=== PATIENT | female | born 1990 | race Native Hawaiian/Other Pacific Islander ===

== ENCOUNTER 2024-10-29 17:09 | Inpatient (IN) | payer MEDICAID, SELFPAY ==
--- NOTE | 2024-10-29 18:11 | EKG_ITS ---
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
[2024-10-29 18:15] VITALS: BP 94/60; PULSE 137; RESP 20; TEMP 38.1; O2SAT 95
--- NOTE | 2024-10-29 18:42 | XR_ITS ---
Examination: PA lateral chest 2 views Technique: Upright AP lateral chest 2 views Exam date and time: October 29, 2024 1916 hrs. Comparison August 12, 2024 Indications: Chest pain coughing today. Findings: Prominent pneumonia in the right middle lobe and right base Normal heart size Intact osseous structures Impression: Prominent right middle lobe right base pneumonia
--- NOTE | 2024-10-29 18:43 | PD.EDRME ---
Rapid Medical Screening Exam RME Arrival date/time: 10/29/24 17:09 34-year-old female presents emergency department complaining of chest pain. Chief Complaint: Shortness of Breath/Dyspnea Time Seen by Provider: 10/29/24 18:20 Vital signs: Vital Signs Temperature 100.5 F H 10/29/24 18:15 Pulse Rate 137 H 10/29/24 18:15 Respiratory Rate 20 10/29/24 18:15 Blood Pressure 94/60 10/29/24 18:15 Pulse Oximetry (%) 95 10/29/24 18:15 Oxygen Delivery Method Room Air 10/29/24 18:15 Vital signs reviewed by provider: Yes
[2024-10-29 18:49] VITALS: TEMP 38.1
[2024-10-29] MEDS: ACETAMINOPHEN 500 MG TABLET 1000 MG PO (18:49)
[2024-10-29 19:18] LABS: Basophils # (Auto) 0.1 Thou/mm3 (0.0-0.2); Basophils % (Auto) 0 % (0-2.5); Eosinophils % (Auto) 0 % (0-10); Hematocrit 30.5 % (36.0-46.0); Immature Granulocytes % (Auto) 2 % (0-0); Immature Granulocytes Auto 0.61 Thou/mm3 (0.00-0.00); Lymphocytes # (Auto) 0.9 Thou/mm3 (1.0-4.8); Lymphocytes % (Auto) 3 % (10-50); Mean Corpuscular HGB Conc 29.5 g/dl (31.0-37.0); Mean Corpuscular Hemoglobin 17.3 pg (25.0-35.0); Mean Corpuscular Volume 59 fL (80-100); Monocytes # (Auto) 0.6 Thou/mm3 (0.0-0.8); Monocytes % (Auto) 2 % (0-12); Neutrophils # (Auto) 31.8 Thou/mm3 (1.8-7.7); Neutrophils % (Auto) 93 % (37-80); Nucleated Red Blood Cell % 0 /100 WBC (0); Platelet Count 519 Thou/mm3 (140-440); RDW Standard Deviation 38.5 fL (36.4-46.3); Red Blood Count 5.21 Miln/mm3 (4.00-5.20)
[2024-10-29 19:22] LABS: White Blood Count 34.1 Thou/mm3 (3.6-11.0)
[2024-10-29 19:36] LABS: B-Type Natriuretic Peptide 199 pg/mL (0-100)
[2024-10-29 19:58] LABS: Alanine Aminotransferase < 7 U/L (10-49); Albumin, Serum 4.4 gm/dL (3.5-5.0); Albumin/Globulin Ratio 1.4 (1.2-2.2); Alkaline Phosphatase 81 U/L (46-116); Anion Gap 8 (7-16); Aspartate Amino Transferase < 8 U/L (0-34); BUN/Creatinine Ratio 19 Ratio (12-20); Bilirubin,Total 0.8 mg/dL (0.3-1.2); Blood Urea Nitrogen 17 mg/dL (9-23); Calcium 9.1 mg/dL (8.3-10.6); Calcium (Corrected) 9.1 mg/dL (8.5-10.1); Carbon Dioxide 24.6 mMol/L (20.0-31.0); Chloride 101 mMol/L (98-107); Creatinine (Component) 0.9 mg/dL (0.6-1.3); Globulin 3.1 gm/dL (2.3-3.5); Glucose 135 mg/dL (74-106); Lipase 25 U/L (12-53); Magnesium 1.6 mg/dL (1.6-2.6); Osmolality,Calculated 271 (275-295); Potassium 3.8 mMol/L (3.4-5.1); Procalcitonin 13.47 ng/ml (0.0-0.49); Sodium 134 mMol/L (136-145); Total Protein 7.5 gm/dL (5.7-8.2); Troponin I < 0.020 ng/mL (0.0-0.045); eGFR > 60 See Note
[2024-10-29 21:21] LABS: INR 1.5 (0.9-1.3); Partial Thromboplastin Time 34.2 Seconds (22.0-36.0); Prothrombin Time 15.9 Seconds (9.0-12.2)
[2024-10-29 21:56] VITALS: BP 110/66; PULSE 104; RESP 22; TEMP 36.9; O2SAT 97
[2024-10-29 22:06] VITALS: BP 128/61; PULSE 85; RESP 24; O2SAT 98
[2024-10-29 22:12] LABS: Influenza A Ag Negative; Influenza B Ag Negative
--- NOTE | 2024-10-29 22:22 | PD.EDADULT ---
ED General RME/HPI General Chief complaint: Shortness of Breath/Dyspnea Stated complaint: SOB, chest pain X 2 days Time Seen by Provider: 10/29/24 18:20 Arrival date/time: 10/29/24 17:09 CC: Cough chest pain shortness of breath HPI ongoing for the past 3 to 4 days states that she has been feeling progressively worse throughout this day. Patient denies any nausea vomiting diarrhea is not sure when her last menstrual cycle was. No prior history of similar events. RME / HPI RME / HPI narrative: 10/29/24 17:09 34-year-old female presents emergency department complaining of chest pain. Related Data Home Medications ?Medication ?Instructions ?Recorded ?Confirmed No Known Home Medications 10/30/24 10/30/24 Allergies Allergy/AdvReac Type Severity Reaction Status Date / Time NKA* Allergy Uncoded 11/07/13 11:37 Review of Systems Review of Systems Narrative Review of Systems: GEN: No fever, no chills, no weight loss EYES: No discharge, no visual changes, no pain HEENT: No ear pain, no congestion, no sore throat PULM: + shortness of breath, + cough, no congestion CV: + chest pain, no dyspnea on exertion, no palpitations GI: No nausea, no vomiting, no diarrhea, no pain, no constipation : No frequency, no urgency, no dysuria MUSC/SKEL: No joint pain, no back pain SKIN: No rash PSYCH: No hallucinations, no depression HEME/LYMPH: No easy bleeding or bruising tendencies NEURO: No weakness, no headache Past Medical History Social History SMOKING STATUS: Current every day smoker ED Exam Narrative Physical exam: [General: In moderate comfort but not in any acute distress Head normocephalic HEENT: Within acceptable limits Neck is supple nontender Chest equal chest rise nontender to palpation Respiratory: Right base expiratory crackles. CV: Rate rhythm is regular, tachycardic, no murmurs rubs or clicks Abdomen is soft nontender no masses positive bowel sounds all 4 quadrants Back: No CVA tenderness no spinous process tenderness from cervical spine thoracic and lumbar spine Skin: Intact no petechiae rash induration ulceration or crepitus Extremities: Moving all extremity against resistance cap refill less than 2 seconds neurosensory intact Neuro: Awake alert oriented x3 Glascow coma 15 no focal deficits] Course Course Course Narrative: The patient's case, clinical presentation laboratory results and imaging discussed with Dr. Fountain resident for Dr. Buckley attending who is requesting a CTA of the chest prior to admission. At which time they will reevaluate the patient. Patient's case and care assumed by Dr. Ortiz. Quality Measures none Orders Category Date Time Status Bedside COVID-19 Antigen Test NOW Care 10/29/24 18:[address] Screening NOW Care 10/29/24 22:37 Active Continuous Pulse Oximetry STAT Care 10/29/24 18:42 Completed EKG (ED ONLY) *Do not use* NOW Care 10/29/24 18:[address] angio chest Stat Exams 10/29/24 22:37 Completed EKG (ED Only) Stat Exams 10/29/24 18:11 Ordered XR chest 2V Stat Exams 10/29/24 18:42 Completed B-Type Natriuretic Peptide Stat Lab 10/29/24 18:55 Completed Blood Culture (Lab) Stat Lab 10/29/24 18:55 Received CBC Stat Lab 10/29/24 18:55 Completed Comprehensive Metabolic Panel Stat Lab 10/29/24 18:55 Completed Influenza A & B Rapid Panel Stat Lab 10/29/24 21:31 Completed Lactate (Lactic Acid) Stat Lab 10/29/24 18:55 Completed Lipase Stat Lab 10/29/24 18:55 Completed Magnesium Stat Lab 10/29/24 18:55 Completed Partial Thromboplastin Time Stat Lab 10/29/24 20:26 Completed [address] Review Blood Smear Stat Lab 10/29/24 18:55 Completed Phosphorous Stat Lab 10/29/24 18:55 Completed Procalcitonin Stat Lab 10/29/24 18:55 Completed Prothrombin Time with INR Stat Lab 10/29/24 20:26 Completed Troponin I Stat Lab 10/29/24 18:55 Completed Urinalysis Stat Lab 10/30/24 02:41 Completed Urine Culture Stat Lab 10/30/24 02:41 Received Acetaminophen Tab [Tylenol ES Tab] Med 10/29/24 18:44 Discontinued 1,000 mg PO X1 ONE Sodium Chloride 0.9% 1000 ml [Ns] 1,000 ml Med 10/29/24 22:18 Discontinued IV 100 mls/hr Sodium Chloride 0.9% 1000 ml [Ns] 1,000 ml Med 10/29/24 22:18 Discontinued IV 999 mls/hr cefTRIAXone/D5w 1gm IV premix [Rocephin/D5w 1gm IV Med 10/29/24 22:18 Discontinued premix] 50 ml IV X1 Vital Signs Vital signs: Vital Signs Temperature 100.5 F H 10/29/24 18:15 Pulse Rate 137 H 10/29/24 18:15 Respiratory Rate 20 10/29/24 18:15 Blood Pressure 94/60 10/29/24 18:15 Pulse Oximetry (%) 95 10/29/24 18:15 Oxygen Delivery Method Room Air 10/29/24 18:15 [facility] Patient data External records reviewed:: [facility] Clinical information provided by:: patient Social determinants that could affect healthcare access:: none Patient has the following chronic illnesses:: None How is presenting disease/condition affected by chronic disease/condition?: uneffected by Evaluation data The following diagnostics were reviewed and interpreted by me:: lab results and radiology exam(s) Lab and/or radiology exams considered but not ordered:: CBC shows a 34,000 white count H&H of 9 and 30.5 respectively platelets elevated at 519. CMP shows sodium of 134 potassium 3.8 chloride of 101 CO2 of 24.6 BUN of 17 creatinine 0.9 glucose of 135 Lactic 2.0 BNP of 199 Pro-Ke of 13.47 Chest x-ray is inter by me read by radiology as a large right pneumonia. Interpretation Summary: Pneumonia Medications Medications considered but not ordered:: None Medication administrations:: Medication Administration History Acetaminophen (Acetaminophen 325 Mg Tablet) 650 mg PO Q6H PRN PRN Reason: Pain 1-3 or Fever >100.3 Stop: 11/29/24 02:41 Last Admin: 10/30/24 08:55 Dose: 650 mg Documented By: ARF Azithromycin (Azithromycin 250 Mg Tablet) 500 mg PO QDAY [facility] Stop: 11/03/24 08:59 Last Admin: 10/30/24 08:55 Dose: 500 mg Documented By: ARF Heparin Sodium (Porcine) (Heparin Sod Inj 5000 Unit/Ml Vial) 5,000 unit SC Q12HR [facility] Stop: 11/13/24 08:59 Last Admin: 10/30/24 08:55 Dose: 5,000 unit Documented By: ARF Co-signed By: GM Ceftriaxone Sodium/Dextrose (Rocephin/D5w 1gm Iv Premix) 50 mls @ 100 mls/hr IV HS [facility] Stop: 11/06/24 20:59 Ondansetron HCl (Ondansetron Inj 2 Mg/Ml Inj 2 Ml) 4 mg IV Q6H PRN; Protocol PRN Reason: NAUSEA OR VOMITING Stop: 11/29/24 02:41 Sennosides (Senna Tablet) 1 tab PO QDAY [facility]; Protocol Stop: 11/29/24 08:59 Last Admin: 10/30/24 08:55 Dose: 1 tab Documented By: ARF Discontinued Medications Acetaminophen (Acetaminophen 500 Mg Tablet) 1,000 mg PO X1 ONE Stop: 10/29/24 18:45 Last Admin: 10/29/24 18:49 Dose: 1,000 mg Documented By: ENRIQUETA Azithromycin (Azithromycin 250 Mg Tablet) 500 mg PO X1 ONE Stop: 10/30/24 02:46 Last Admin: 10/30/24 04:16 Dose: 500 mg Documented By: JOSEPH Azithromycin (Azithromycin 250 Mg Tablet) 250 mg PO QDAY [facility] Stop: 11/03/24 08:59 Sodium Chloride (Ns) 1,000 mls @ 999 mls/hr IV .Q1H1M ONE Stop: 10/29/24 23:18 Last Infusion: 10/30/24 00:59 Dose: Infused Documented By: Admin: 10/29/24 23:15 Dose: 999 mls/hr Documented By: JOSEPH Sodium Chloride (Ns) 1,000 mls @ 100 mls/hr IV .Q10H [facility] Stop: 10/30/24 08:17 Last Infusion: 10/30/24 10:39 Dose: Infused Documented By: Admin: 10/29/24 23:14 Dose: 100 mls/hr Documented By: JOSEPH Ceftriaxone Sodium/Dextrose (Rocephin/D5w 1gm Iv Premix) 50 mls @ 100 mls/hr IV X1 ONE Stop: 10/29/24 22:47 Last Infusion: 10/29/24 23:48 Dose: Infused Documented By: Admin: 10/29/24 23:16 Dose: 100 mls/hr Documented By: JOSEPH Sodium Phosphate 22.5 mmol/ (Sodium Chloride) 507.5 mls @ 82.778 mls/hr IV X1 ONE Stop: 10/30/24 09:44 Last Admin: 10/30/24 04:41 Dose: Not Given Documented By: KD Non-Admin Reason: Other, see note Sodium Chloride (Sodium Chloride Rt 10% 15 Ml Nebu) 5 ml INH X1 ONE Stop: 10/30/24 02:43 Last Admin: 10/30/24 03:00 Dose: Not Given Documented By: JOSY Non-Admin Reason: Patient Refused None Consultations Consultation(s) initiated? (list below): No Diagnosis Differential Diagnosis ED Complaint MDM: Pneumonia, PE methamphetamine abuse Most likely diagnosis given after review of the tests above:: Pneumonia methamphetamine abuse Admission Indicated Admission indicated?: indicated Explain why admission is indicated or not indicated:: Requires further medical management Admission Request Was there a request for admission?: No Disposition Plan Disposition Plan: Admit Medical Decision Making Differential Diagnosis Differential Diagnosis: Pneumonia, PE methamphetamine abuse Lab Data 10/30/24 04:49 10/30/24 04:49 Labs: Lab Results 10/29/24 10/29/24 10/29/24 Range/Units 18:55 20:26 20:47 WBC 34.1 H (3.6-11.0) Thou/mm3 RBC 5.21 H (4.00-5.20) Miln/mm3 Hgb 9.0 L (12.0-16.0) g/dL Hct 30.5 L (36.0-46.0) % MCV 59 L (80-100) fL MCH 17.3 L (25.0-35.0) pg MCHC 29.5 L (31.0-37.0) g/dl RDW Std Deviation 38.5 (36.4-46.3) fL Plt Count 519 H (140-440) Thou/mm3 Neut % (Auto) 93 H (37-80) % Lymph % (Auto) 3 L (10-50) % [place] % (Auto) 2 (0-12) % Eos % (Auto) 0 (0-10) % Baso % (Auto) 0 (0-2.5) % Neut # (Auto) 31.8 H (1.8-7.7) Thou/mm3 Lymph # (Auto) 0.9 L (1.0-4.8) Thou/mm3 [place] # (Auto) 0.6 (0.0-0.8) Thou/mm3 Eos # (Auto) 0.0 (0.0-0.5) Thou/mm3 Baso # (Auto) 0.1 (0.0-0.2) Thou/mm3 Immature Gran # (Auto) 0.61 H (0.00-0.00) Thou/mm3 Absolute Nucleated RBC 0.00 (0.00-0.00) Thou/mm3 Immature Gran % 2 H (0-0) % Nucleated RBC % 0 (0) /100 WBC Smear Path Review Sent to Pathologist PT 15.9 H (9.0-12.2) Seconds INR 1.5 H (0.9-1.3) APTT 34.2 (22.0-36.0) Seconds Sodium 134 L (136-145) mMol/L Potassium 3.8 (3.4-5.1) mMol/L Chloride 101 (98-107) mMol/L Carbon Dioxide 24.6 (20.0-31.0) mMol/L Anion Gap 8 (7-16) BUN 17 (9-23) mg/dL Creatinine 0.9 (0.6-1.3) mg/dL Estim Creat Clear Calc Not Performed. eGFR > 60 (60 - ) See Note BUN/Creatinine Ratio 19 (12-20) Ratio Glucose 135 H (74-106) mg/dL Calculated Osmolality 271 L (275-295) Lactic Acid 2.0 (0.4-2.0) mMol/L Calcium 9.1 (8.3-10.6) mg/dL Corrected Calcium 9.1 (8.5-10.1) mg/dL Phosphorus 2.0 L (2.4-5.1) mg/dL Magnesium 1.6 (1.6-2.6) mg/dL Total Bilirubin 0.8 (0.3-1.2) mg/dL AST < 8 (0-34) U/L ALT < 7 L (10-49) U/L Alkaline Phosphatase 81 (46-116) U/L Troponin I < 0.020 (0.0-0.045) ng/mL B-Natriuretic Peptide 199 H (0-100) pg/mL Total Protein 7.5 (5.7-8.2) gm/dL Albumin 4.4 (3.5-5.0) gm/dL Globulin 3.1 (2.3-3.5) gm/dL Albumin/Globulin Ratio 1.4 (1.2-2.2) Lipase 25 (12-53) U/L Procalcitonin 13.47 H (0.0-0.49) ng/ml Influenza A (Rapid) Cancelled Influenza B (Rapid) Cancelled 10/29/24 Range/Units 21:31 WBC (3.6-11.0) Thou/mm3 RBC (4.00-5.20) Miln/mm3 Hgb (12.0-16.0) g/dL Hct (36.0-46.0) % MCV (80-100) fL MCH (25.0-35.0) pg MCHC (31.0-37.0) g/dl RDW Std Deviation (36.4-46.3) fL Plt Count (140-440) Thou/mm3 Neut % (Auto) (37-80) % Lymph % (Auto) (10-50) % [place] % (Auto) (0-12) % Eos % (Auto) (0-10) % Baso % (Auto) (0-2.5) % Neut # (Auto) (1.8-7.7) Thou/mm3 Lymph # (Auto) (1.0-4.8) Thou/mm3 [place] # (Auto) (0.0-0.8) Thou/mm3 Eos # (Auto) (0.0-0.5) Thou/mm3 Baso # (Auto) (0.0-0.2) Thou/mm3 Immature Gran # (Auto) (0.00-0.00) Thou/mm3 Absolute Nucleated RBC (0.00-0.00) Thou/mm3 Immature Gran % (0-0) % Nucleated RBC % (0) /100 WBC Smear Path Review PT (9.0-12.2) Seconds INR (0.9-1.3) APTT (22.0-36.0) Seconds Sodium (136-145) mMol/L Potassium (3.4-5.1) mMol/L Chloride (98-107) mMol/L Carbon Dioxide (20.0-31.0) mMol/L Anion Gap (7-16) BUN (9-23) mg/dL Creatinine (0.6-1.3) mg/dL Estim Creat Clear Calc eGFR (60 - ) See Note BUN/Creatinine Ratio (12-20) Ratio Glucose (74-106) mg/dL Calculated Osmolality (275-295) Lactic Acid (0.4-2.0) mMol/L Calcium (8.3-10.6) mg/dL Corrected Calcium (8.5-10.1) mg/dL Phosphorus (2.4-5.1) mg/dL Magnesium (1.6-2.6) mg/dL Total Bilirubin (0.3-1.2) mg/dL AST (0-34) U/L ALT (10-49) U/L Alkaline Phosphatase (46-116) U/L Troponin I (0.0-0.045) ng/mL B-Natriuretic Peptide (0-100) pg/mL Total Protein (5.7-8.2) gm/dL Albumin (3.5-5.0) gm/dL Globulin (2.3-3.5) gm/dL Albumin/Globulin Ratio (1.2-2.2) Lipase (12-53) U/L Procalcitonin (0.0-0.49) ng/ml Influenza A (Rapid) Negative Influenza B (Rapid) Negative Discharge Plan Plan Patient Disposition: Other Care w/in Hosp ([facility]) Patient condition on transfer: Stable Problem List Clinical Impression: Pneumonia, Anemia PA/WARP KNITTER Supervising Physician PA/WARP KNITTER Supervising Physician: Hema Espinoza ENP
--- NOTE | 2024-10-29 22:37 | XR_ITS ---
Examination: CTA chest with intravenous contrast 2-D reconstructions 3-D reconstructions, vascular Date and time of exam: October 30, 2024 0015 hrs. Indications: Shortness of breath tachycardia coughing beginning 2 days ago CTDI: vol (mGy) 20.71 DLP: (mGycm) 446 Technique: Multiple axial sections of the thorax have been obtained. 3 mm slice thickness, from below the hemidiaphragms to above the apices of the lungs. Mediastinal and lung density settings have been obtained. 2-D sagittal and coronal reconstructions. 3-D angiographic renderings, 3-D volume renderings, 3D post processing, vascular maximum intensity projections obtained. Contrast administered is 100 cc Isovue-370 intravenous. Low dose protocols were performed. One or more of the following dose reduction techniques were used; automated exposure control, adjustment of the mA and/or KV according to patient size, use of iterative reconstruction technique. Findings: No thoracic aortic aneurysmal dilatation Pulmonary artery hypertension, main pulmonary artery segment 4 cm No pulmonary artery emboli Severe pneumonia involving right lower lobe and right middle lobe Fatty infiltration throughout the liver No gallstones identified No pancreatic mass The osseous structures are intact Impression: Pulmonary artery hypertension Negative for pulmonary artery emboli Severe pneumonia in the right middle lobe right lower lobe
[2024-10-29 23:00] VITALS: BP 134/63; PULSE 100; RESP 21; O2SAT 98
[2024-10-29] MEDS: SODIUM CHLORIDE 0.9% 1000 ML 1,000 ML 100 ML IV (23:14)
[2024-10-29] MEDS: SODIUM CHLORIDE 0.9% 1000 ML 1,000 ML 999 ML IV (23:15)
[2024-10-29] MEDS: cefTRIAXone/D5w 1gm IV premix 50 ML IV (23:16)
[2024-10-29 23:18] VITALS: TEMP 36.9
[2024-10-30] VITALS (17 sets, daily range): BP systolic 70–162; BP diastolic 53–95; PULSE 84–118; RESP 14–98; TEMP 36.6–39.1; O2SAT 95–100; BMI 33.5
--- NOTE | 2024-10-30 01:00 | PRELIM_ITS ---
CT angiogram of the chest with intravenous contrast (axial sections with sagittal and coronal reforma ts) October 30, 2024 0015 hours Clinical History: Shortness of breath, tachycardia and pneumonia.Vicky hnique:Helical axial sections with sagittal and coronal reformats of the chest were obtained with int ravenous contrast. Iterative reconstruction technique was employed to reduce patient radiation exposu re. 3D/MIP reconstructed images were also provided. Comparison: None.Findings:There is no filling def ect within the pulmonary artery divisions to suggest pulmonary thromboembolism. The mediastinum demon strates no evidence of mass or lymphadenopathy. The thoracic aorta is unremarkable. There is no peric ardial effusion. Consolidation in the right lower lobe.Smaller consolidation in the right middle lobe .No evidence of pleural effusion or pneumothorax.The osseous structures are unremarkable.The visualiz ed upper abdominal viscera are unremarkable.Impression:No CT evidence of pulmonary thromboembolism.Mu ltifocal pneumonia. Report Electronically Signed By: John Calzada 10/30/2024 12:58:16 AM [EST]
--- NOTE | 2024-10-30 03:26 | ESHP_ITS ---
<Statement entered by Andie Buckley MD - 10/30/24 22:19> I Andie Buckley MD reviewed the note and agree with the resident's assessment & plan with exceptions as below. I have personally reviewed labs, imaging, home meds/prior records, examined the patient, formulated and discussed management plan with the IM team. A 34-year-old F with no significant past medical history presented to ED with cough and atypical chest pain for past 3 days. On presentation noted to be febrile have significant leukocytosis, significantly elevated procalcitonin. CTPA ruled out PE however did reveal significant right lower lobe consolidation concerning for pneumonia. Will start on Rocephin and azithromycin, administer IV fluid resuscitation. Obtain respiratory cultures, sputum cultures, cocci serologies, mycoplasma antibody, strep pneumonia Legionella antigen. Documentation for date of: 10/30/24 HPI History of Present Illness History of present illness: The patient is a 34-year-old female with no significant past medical history who presented to the ED on 10/29/2024 with complaints of chest pain about 3 days duration. She was in her usual state of health until about 3 days ago when she started experiencing left-sided chest pain associated with productive cough with greenish-yellow sputum. Pain is said to radiateto the back and is exacerbated by coughing and deep inspiration. She also endorses subjective fevers and chills, but denies any difficulty breathing or shortness of breath. Additionally, she denies abdominal pain, nausea vomiting diarrhea or any urinary symptoms including dysuria. The patient has been otherwise healthy until onset of his episodes, [facility] but has had no appointments in the past year and uses no medications. She smokes 3 to 4 packs of cigarettes a day and has been for the last 16 years, however does not drink alcohol or use any other drugs. ED course: In the ED, patient had a fever of 100.5 and was tachycardic at 137 beats per minutes, tachypneic but normotensive and saturating 93% on room air Labs are significant for WBC of 34.1, hemoglobin 9, MCV 59 and platelet count of 519. PT and INR elevated. CMP-sodium 134 potassium 4.8 BUN and creatinine normal, glucose 135 phosphorus 2.0 with a BNP 199 and Pro-Ke 13.47, normal lactic acid. Chest x-ray showed prominent right middle lobe right base pneumonia, CT was negative for PE. ED patient received 1 L of NS and was started on maintenance fluid, as well as Tylenol and IV ceftriaxone. PMHx-none PSHx-none Social history-smokes 3 packs of cigarettes daily, does not drink alcohol use illicit drugs Home meds-none Review of Systems Review of Systems Narrative Review of Systems: GENERAL: Admits subjective fevers and chills HEENT: Denies headache or visual/hearing changes. Denies nasal discharge. NEURO: Denies unusual weakness or difficulty speaking. CARDIO: Admits chest pain, denies palpitations PULM: Admits productive cough but denies SOB or wheezing GI: Denies abdominal pain, N/V/C/D/reflux/gas, bright red blood per rectum or melena. Reports having BMs. URO: Denies burning/itching/pain/urinary changes. MSK/EXT/SKIN: Denies joint/skeletal/muscle pain, issues/changes in upper or lower extremities, itchiness, or superficial pain. PSYCH: Cooperative, pleasant mood & affect. Exam Vital Signs Temp Pulse Resp BP Pulse Ox O2 Del Method 98.4 F 95 20 162/95 H 98 Room Air 10/29/24 23:18 10/30/24 01:00 10/30/24 01:00 10/30/24 01:00 10/30/24 01:00 10/29/24 21:56 Narrative Exam GENERAL: AAOX3, warm to touch NEURO: FINANCING ANALYST grossly intact, moves extremities x4 HEENT: Moist mucosa. Eyes open, symmetrical, & clear CARDIO: No chest pain on palpation. Heart RRR, no obvious murmurs PULM: Coughing, coarse sounds in base of right lung. GI: Abdomen soft, nondistended, no pain on palpation. BSx4 URO/BEVEL FACE STONER AND POLISHER:: No further abnormalities noted. SKIN/MSK/EXT: No wounds/rashes/edema/amputations, no pain on palpation. Pedal pulses present B/L Results: Labs 10/30/24 04:49 10/30/24 04:49 Labs: Short CBC 10/29/24 Range/Units 18:55 WBC 34.1 H (3.6-11.0) Thou/mm3 Hgb 9.0 L (12.0-16.0) g/dL Hct 30.5 L (36.0-46.0) % Plt Count 519 H (140-440) Thou/mm3 BMP 10/29/24 18:55 Sodium 134 L Potassium 3.8 Chloride 101 Carbon Dioxide 24.6 BUN 17 Creatinine 0.9 Glucose 135 H Calcium 9.1 Cardiac Enzymes 10/29/24 Range/Units 18:55 Troponin I < 0.020 (0.0-0.045) ng/mL Liver Function 10/29/24 Range/Units 18:55 Total Bilirubin 0.8 (0.3-1.2) mg/dL AST < 8 (0-34) U/L ALT < 7 L (10-49) U/L Alkaline Phosphatase 81 (46-116) U/L Albumin 4.4 (3.5-5.0) gm/dL Quality Measures Quality Measures VTE prophylaxis Medications Home Medications and Allergies Home Medications ?Medication ?Instructions ?Recorded ?Confirmed ?Type No Known Home Medications 10/30/24 10/30/24 History Allergies Allergy/AdvReac Type Severity Reaction Status Date / Time NKA* Allergy Uncoded 11/07/13 11:37 Visit Medications Acetaminophen (Acetaminophen 325 Mg Tablet) 650 mg PO Q6H PRN PRN Reason: Pain 1-3 or Fever >100.3 Stop: 11/29/24 02:41 Azithromycin (Azithromycin 250 Mg Tablet) 250 mg PO QDAY [facility] Stop: 11/03/24 08:59 Sodium Chloride (Ns) 1,000 mls @ 100 mls/hr IV .Q10H BARRETT Stop: 10/30/24 08:17 Last Admin: 10/29/24 23:14 Dose: 100 mls/hr Ceftriaxone Sodium/Dextrose (Rocephin/D5w 1gm Iv Premix) 50 mls @ 100 mls/hr IV QDAY BARRETT Stop: 11/06/24 05:59 Ondansetron HCl (Ondansetron Inj 2 Mg/Ml Inj 2 Ml) 4 mg IV Q6H PRN; Protocol PRN Reason: NAUSEA OR VOMITING Stop: 11/29/24 02:41 Sennosides (Senna Tablet) 1 tab PO QDAY [facility]; Protocol Stop: 11/29/24 08:59 Discontinued Medications Acetaminophen (Acetaminophen 500 Mg Tablet) 1,000 mg PO X1 ONE Stop: 10/29/24 18:45 Last Admin: 12/22/24 18:49 Dose: 1,000 mg Azithromycin (Azithromycin 250 Mg Tablet) 500 mg PO X1 ONE Stop: 10/30/24 02:46 Sodium Chloride (Ns) 1,000 mls @ 999 mls/hr IV .Q1H1M ONE Stop: 10/29/24 23:18 Last Infusion: 10/30/24 00:59 Dose: Infused Ceftriaxone Sodium/Dextrose (Rocephin/D5w 1gm Iv Premix) 50 mls @ 100 mls/hr IV X1 ONE Stop: 10/29/24 22:47 Last Infusion: 10/29/24 23:48 Dose: Infused Sodium Chloride (Sodium Chloride Rt 10% 15 Ml Nebu) 5 ml INH X1 ONE Stop: 10/30/24 02:43 Assessment & Plan Assessment Summary: The patient is a 34-year-old female with no significant past medical history who presented to the ED on 10/29/2024 with complaints of chest pain about 3 days duration. Chest x-ray revealed pneumonia in the middle lobe of the right lung. #Sepsis #Community-acquired pneumonia #Pleurisy The patient presented with a 3-day history of chest pain, located on the left side associated with productive cough with greenish-yellow sputum. Pain is that radiates to the back and exacerbated by coughing and deep inspiration. Additionally, she endorses subjective fevers and chills, but denies any difficulty breathing or shortness of breath. In the ED, patient met 4/4 SIRS criteria with fever, tachycardia, tachypnea and WBC of 34.1 Chest x-ray showed prominent right middle lobe pneumonia and CT was negative for PE. In the ED, patient received 1 L of NS and is on maintenance fluids, also received Tylenol IV ceftriaxone Plan: -Admit to [facility] -Continue maintenance fluids -IV ceftriaxone -Azithromycin 500 mg x 1 and then 250 mg for 4 days -Blood and sputum cultures -Cocci serology -Continue to monitor CBC #Normocytic normochromic anemia Admitting labs showed a hemoglobin of 9 with MCV of 59 and low MCH. Plan: -Iron panel #Mild hyponatremia #Hypophosphatemia Admitting labs showed sodium level of 134 with osmolality of 271. Phosphorus-2.0 Plan: -Maintenance IV fluid NS -Replete phosphorus Health maintenance: Dispo: MedSurg Diet: Regular DVT: SC Heparin Garcia: None Lines: Peripheral PT: Not ordered Code: Full Case was discussed with attending physician, Dr Marcio Winston MD PGY-1
[2024-10-30 03:55] LABS: Collection Type, Urine Clean Catch
[2024-10-30 04:16] LABS: Bilirubin,Urine Negative (Negative); Blood,Urine Trace (Negative); Clarity,Urine Clear (Clear/Hazy); Color,Urine Lt-Yellow (Lt Yel-Yel); Glucose, Urine Negative (Negative); Ketones,Urine 1+ (Negative); Leukocyte Esterase,Urine Negative (Negative); Nitrite,Urine Positive (Negative); Protein,Urine Trace (Neg - Trace); RBC,Urine 3 /hpf (0-3); Specific Gravity,Urine 1.035 (1.001-1.035); Squamous Epithelial Cell,Urine 2 /hpf (0-5); Urobilinogen,Urine Negative mg/dL (0.0-1.0); WBC,Urine 2 /hpf (0-5)
[2024-10-30] MEDS: AZITHROMYCIN 250 MG TABLET 500 MG PO ×2 (04:16→08:55)
[2024-10-30 04:51] LABS: Amphetamine/Methamp Scrn,U Positive (Negative); Barbiturate Screen,Urine Negative (Negative); Benzodiazepines Screen,Urine Negative (Negative); Benzoylecgonine Screen, Ur Negative (Negative); Fentanyl Screen,Urine Negative (Negative); Opiate Screen,Urine Negative (Negative); THC Screen,Urine Negative (Negative)
[2024-10-30 05:56] LABS: Basophils # (Auto) 0.1 Thou/mm3 (0.0-0.2); Basophils % (Auto) 0 % (0-2.5); Eosinophils % (Auto) 0 % (0-10); Hematocrit 27.3 % (36.0-46.0); Immature Granulocytes % (Auto) 2 % (0-0); Lymphocytes # (Auto) 1.6 Thou/mm3 (1.0-4.8); Lymphocytes % (Auto) 5 % (10-50); Mean Corpuscular HGB Conc 28.9 g/dl (31.0-37.0); Mean Corpuscular Volume 59 fL (80-100); Monocytes # (Auto) 0.6 Thou/mm3 (0.0-0.8); Monocytes % (Auto) 2 % (0-12); Neutrophils # (Auto) 28.8 Thou/mm3 (1.8-7.7); Neutrophils % (Auto) 90 % (37-80); Nucleated Red Blood Cell % 0 /100 WBC (0); Platelet Count 452 Thou/mm3 (140-440); RDW Standard Deviation 38.7 fL (36.4-46.3); Red Blood Count 4.64 Miln/mm3 (4.00-5.20); White Blood Count 31.8 Thou/mm3 (3.6-11.0)
[2024-10-30 06:05] LABS: Hemoglobin 7.9 g/dL (12.0-16.0)
[2024-10-30 06:12] LABS: HCG,Qualitative Serum Negative
[2024-10-30 06:29] LABS: Path Review Blood Smear Sent to Pathologist
[2024-10-30 06:35] LABS: Ferritin 52 ng/mL (7.3-270.7); Iron < 5 mcg/dL (50-170); Percent Iron Saturation 1 % (20-55); Total Iron Binding Capacity 319 mcg/dL (250-425); Unsaturated Iron Binding 314 (225-295)
[2024-10-30 06:37] LABS: Glucose Estimated Average 114 mg/dL (80-131); Hemoglobin A1C 5.6 % Hgb (4.8-6.0)
[2024-10-30 06:49] LABS: Alanine Aminotransferase < 7 U/L (10-49); Albumin, Serum 3.8 gm/dL (3.5-5.0); Albumin/Globulin Ratio 1.3 (1.2-2.2); Alkaline Phosphatase 89 U/L (46-116); Anion Gap 9 (7-16); Aspartate Amino Transferase < 8 U/L (0-34); BUN/Creatinine Ratio 18 Ratio (12-20); Bilirubin,Total 0.5 mg/dL (0.3-1.2); Blood Urea Nitrogen 14 mg/dL (9-23); Calcium 8.9 mg/dL (8.3-10.6); Calcium (Corrected) 9.1 mg/dL (8.5-10.1); Carbon Dioxide 24.5 mMol/L (20.0-31.0); Cardiac Risk Estimate 2.3 RATIO (3.7-5.6); Chloride 104 mMol/L (98-107); Cholesterol 95 mg/dL (132-200); Creatinine (Component) 0.8 mg/dL (0.6-1.3); Globulin 2.9 gm/dL (2.3-3.5); Glucose 94 mg/dL (74-106); HDL Cholesterol 42 mg/dL (40-60); LDL Cholesterol,Calculated 37 mg/dL (0-130); Magnesium 1.9 mg/dL (1.6-2.6); Osmolality,Calculated 274 (275-295); Potassium 3.5 mMol/L (3.4-5.1); Sodium 137 mMol/L (136-145); Thyroid Stimulating Hormone 0.59 uIU/mL (0.55-4.78); Total Protein 6.7 gm/dL (5.7-8.2); Triglycerides 80 mg/dL (30-150); eGFR > 60 See Note
[2024-10-30] MEDS: HEPARIN SOD INJ 5000 UNIT/ML VIAL SC ×2 (08:55→21:53)
[2024-10-30] MEDS: ACETAMINOPHEN 325 MG TABLET 650 MG PO (08:55)
[2024-10-30] MEDS: SENNA TABLET 1 TAB PO (08:55)
[2024-10-30 10:00] LABS: Phosphorous 1.4 mg/dL (2.4-5.1)
--- NOTE | 2024-10-30 10:37 | ECHO_ITS ---
Transthoracic Echo Report Ht (in): Wt (lb): 180 Exam Location: Echo Lab Status: Inpatient Overlock Collar Setter: Libia Winters Indications: Procedure Performed: BP: 107 / 64 HR: 84 Technical Quality: Technically difficult study MEASUREMENTS (Male / Female) Normal Values 2D ECHO LV Diastolic Diameter PLAX 5.5 cm 4.2 - 5.9 / 3.9 - 5.3 cm LV Systolic Diameter PLAX 3.5 cm IVS Diastolic Thickness 0.7 cm 0.6 - 1.0 / 0.6 - 0.9 cm LVPW Diastolic Thickness 0.8 cm 0.6 - 1.0 / 0.6 - 0.9 cm LV Relative Wall Thickness 0.3 LVOT Diameter 2.3 cm M-MODE Aortic Root Diameter MM 2.3 cm LA Systolic Diameter MM 2.9 cm LA Ao Ratio MM 1.3 AV Cusp Separation MM 2.1 cm DOPPLER AV Peak Velocity 166.0 cm/s AV Peak Gradient 11.0 mmHg AV Mean Gradient 6.0 mmHg AV Velocity Time Integral 30.4 cm LVOT Peak Velocity 158.0 cm/s LVOT Peak Gradient 10.0 mmHg LVOT Velocity Time Integral 26.8 cm AV Area Cont Eq vti 3.7 cm? AV Area Cont Eq pk 4.0 cm? MV Area PHT 4.6 cm? Mitral E Point Velocity 100.0 cm/s Mitral A Point Velocity 80.5 cm/s Mitral E to A Ratio 1.2 LV E' Lateral Velocity 11.9 cm/s Mitral E to LV E' Lateral Ratio 8.4 LV E' Septal Velocity 7.5 cm/s Mitral E to LV E' Septal Ratio 13.3 PV Peak Velocity 148.0 cm/s PV Peak Gradient 8.8 mmHg FINDINGS Left Ventricle Normal left ventricular wall thickness, systolic function with no obvious regional wall motion abnormalities.Mildly dilated in size. Normal left ventricular diastolic filling pattern for age. Th e ejection fraction is visually estimated at 55-60%. Right Ventricle The right ventricle is mildly dilated in size with normal systolic function. Left Atrium The left atrium is normal by two-dimensional, color flow and Doppler imaging with no structural abnormalities, no thrombus formation present. Right Atrium The right atrium is normal by two-dimensional imaging, color flow and Doppler imaging with no struct ural abnormalities, no thrombus formation present. Atrial Septum The interatrial septum appears normal with no evidence of a shunt. Aorta The aorta is normal by two-dimensional, color flow and Doppler interrogation. Mitral Valve The mitral valve is normal by two-dimensional, color flow and Doppler interrogation. There is no sig nificant mitral valve regurgitation, stenosis or prolapse. Aortic Valve The aortic valve is trileaflet and normal by two-dimensional, color flow and Doppler interrogation. There is no significant aortic valve regurgitation. Tricuspid Valve The tricuspid valve is normal by two-dimensional, color flow and Doppler interrogation. There is a t racce tricuspid valve regurgitation. Pulmonic Valve The pulmonic valve is not well visualized. There is no significant pulmonic valve regurgitation. Vessels The pulmonary artery appears normal. The inferior vena cava pulmonary and hepatic veins appear bea l. Pericardium The pericardium is normal by two-dimensional imaging. There is no significant pericardial effusion. CONCLUSIONS Indication: h/o meth use Normal left ventricular wall thickness. Mildly dilated in size. Estimated EF 55-60%. RV is mildly dilated in size with normal systolic function. Trace TR. Francoise Coleman (Electronically Signed) Final Date: 31 October 2024 13:00
--- NOTE | 2024-10-30 13:22 | ESPR_ITS ---
<Statement entered by Nedra Tejeda MD - 10/30/24 16:18> Patient was examined bedside this morning, admitted for sepsis secondary to pneumonia. History of meth use will order echo. Continue the same treatment I discussed with and supervised my co-resident involved in the care of this patient. I agree with the assessment and plan as documented above. Nedra Tejeda,PGY-3 Disclaimer: Despite multiple revisions, due to the dictation software being used, the document below may not be free of grammatical errors including phonetic/typographic errors. However, this does not deter from our commitment to providing health care in the patient's best interest in mind. Documentation for date of: 10/30/24 Subjective Subjective Interval history: 10/30/24:Patient was seen and examined by the bedside. No acute overnight events. Patient reports feeling okay, continues to have weakness, cough. Reports feeling short of breath. Saturates well on room air, 99%. Continues to be on antibiotics. She received 2L of fluid overnight. Exam Vital Signs Temp Pulse Resp BP Pulse Ox O2 Del Method 97.8 F 91 19 110/53 L 100 Room Air 10/30/24 12:39 10/30/24 12:39 10/30/24 12:39 10/30/24 12:39 10/30/24 12:39 10/30/24 12:39 Narrative Exam Physical Exam General: Awake and in no acute distress. Conversational and non-toxic appearing. HEENT: Normocephalic, atraumatic, mucous membranes moist. Heart: Regular rate and rhythm, no murmurs. Lungs: Bilateral rhonchi. Abdomen: Soft, nondistended, nontender, positive bowel sounds. ?No guarding or rebound tenderness. Neurologic: Alert and oriented x3, no gross neurological deficit, and patient able to move all 4 extremities. Extremities: No edema. Skin: No rash or ecchymoses. Objective Labs 10/31/24 05:12 10/31/24 05:12 Labs: Laboratory Results - last 24 hr 10/29/24 10/29/24 10/29/24 18:55 20:26 20:47 WBC 34.1 H RBC 5.21 H Hgb 9.0 L Hct 30.5 L MCV 59 L MCH 17.3 L MCHC 29.5 L RDW Std Deviation 38.5 Plt Count 519 H Neut % (Auto) 93 H Lymph % (Auto) 3 L [place] % (Auto) 2 Eos % (Auto) 0 Baso % (Auto) 0 Neut # (Auto) 31.8 H Lymph # (Auto) 0.9 L [place] # (Auto) 0.6 Eos # (Auto) 0.0 Baso # (Auto) 0.1 Immature Gran # (Auto) 0.61 H Absolute Nucleated RBC 0.00 Immature Gran % 2 H Nucleated RBC % 0 Smear Path Review Sent to Pathologist PT 15.9 H INR 1.5 H APTT 34.2 Sodium 134 L Potassium 3.8 Chloride 101 Carbon Dioxide 24.6 Anion Gap 8 BUN 17 Creatinine 0.9 Estim Creat Clear Calc Not Performed. eGFR > 60 BUN/Creatinine Ratio [address] Glu mg/dL Hemoglobin A1c Calculated Osmolality 271 L Lactic Acid 2.0 Calcium 9.1 Corrected Calcium 9.1 Phosphorus 2.0 L Magnesium 1.6 Iron TIBC Iron Saturation Unsat Iron Binding Ferritin Total Bilirubin 0.8 AST < 8 ALT < 7 L Alkaline Phosphatase 81 Troponin I < 0.020 B-Natriuretic Peptide 199 H Total Protein 7.5 Albumin 4.4 Globulin 3.1 Albumin/Globulin Ratio 1.4 Triglycerides Cholesterol LDL Cholesterol, Calc HDL Cholesterol Cholesterol/HDL Ratio Lipase 25 Procalcitonin 13.47 H TSH HCG, Qual Ur Collection Type Urine Color Urine Clarity Urine pH Ur Specific [place] Urine Protein Urine Glucose (UA) Urine Ketones Urine Blood Urine Nitrite Urine Bilirubin Urine Urobilinogen (Auto) Ur Leukocyte Esterase Urine RBC Urine WBC Ur Squamous Epith Cells Urine Bacteria Urine Opiates Screen Urine Fentanyl Screen Ur Barbiturates Screen U Amphetamin/Meth Scrn U Benzodiazepines Scrn U Cocaine Metab Screen U Marijuana (THC) Screen Influenza A (Rapid) Cancelled Influenza B (Rapid) Cancelled 10/29/24 10/30/24 10/30/24 21:31 02:41 04:49 WBC 31.8 H RBC 4.64 Hgb 7.9 L Hct 27.3 L MCV 59 L MCH 17.0 L MCHC 28.9 L RDW Std Deviation 38.7 Plt Count 452 H D Neut % (Auto) 90 H Lymph % (Auto) 5 L [place] % (Auto) 2 Eos % (Auto) 0 Baso % (Auto) 0 Neut # (Auto) 28.8 H Lymph # (Auto) 1.6 [place] # (Auto) 0.6 Eos # (Auto) 0.0 Baso # (Auto) 0.1 Immature Gran # (Auto) 0.70 H Absolute Nucleated RBC 0.00 Immature Gran % 2 H Nucleated RBC % 0 Smear Path Review PT INR APTT Sodium 137 Potassium 3.5 Chloride 104 Carbon Dioxide 24.5 Anion Gap 9 BUN 14 Creatinine 0.8 Estim Creat Clear Calc Not Performed. eGFR > 60 BUN/Creatinine Ratio [address] Glu mg/dL 114 Hemoglobin A1c 5.6 Calculated Osmolality 274 L Lactic Acid Calcium 8.9 Corrected Calcium 9.1 Phosphorus 1.4 L Magnesium 1.9 Iron < 5 L TIBC 319 Iron Saturation 1 L Unsat Iron Binding 314 H Ferritin 52 Total Bilirubin 0.5 AST < 8 ALT < 7 L Alkaline Phosphatase 89 Troponin I B-Natriuretic Peptide Total Protein 6.7 Albumin 3.8 D Globulin 2.9 Albumin/Globulin Ratio 1.3 Triglycerides 80 Cholesterol 95 L LDL Cholesterol, Calc 37 HDL Cholesterol 42 Cholesterol/HDL Ratio 2.3 L Lipase Procalcitonin TSH 0.59 HCG, Qual Negative Ur Collection Type Clean Catch Urine Color Lt-Yellow Urine Clarity Clear Urine pH 6.0 Ur Specific [place] 1.035 Urine Protein Trace Urine Glucose (UA) Negative Urine Ketones 1+ A Urine Blood Trace Urine Nitrite Positive Urine Bilirubin Negative Urine Urobilinogen (Auto) Negative Ur Leukocyte Esterase Negative Urine RBC 3 Urine WBC 2 Ur Squamous Epith Cells 2 Urine Bacteria None Urine Opiates Screen Negative Urine Fentanyl Screen Negative Ur Barbiturates Screen Negative U Amphetamin/Meth Scrn Positive A U Benzodiazepines Scrn Negative U Cocaine Metab Screen Negative U Marijuana (THC) Screen Negative Influenza A (Rapid) Negative Influenza B (Rapid) Negative Quality Measures Quality Measures none Assessment & Plan Assessment Current Active Medications: Generic Name Dose Route Start Last Admin Trade Name Freq PRN Reason Stop Dose Admin Acetaminophen 650 mg 10/30/24 02:42 10/30/24 08:55 Acetaminophen 325 Mg Tablet PO 11/29/24 02:41 650 mg Q6H PRN Administration Pain 1-3 or Fever >100.3 Azithromycin 500 mg 10/30/24 09:00 10/30/24 08:55 Azithromycin 250 Mg Tablet PO 11/03/24 08:59 500 mg QDAY BARRETT Administration Heparin Sodium (Porcine) 5,000 unit 10/30/24 09:00 10/30/24 08:55 Heparin Sod Inj 5000 Unit/Ml Vial SC 11/13/24 08:59 5,000 unit Q12HR BARRETT Administration Ceftriaxone Sodium/Dextrose 50 mls @ 100 mls/hr 10/30/24 21:00 Rocephin/D5w 1gm Iv Premix IV 11/06/24 20:59 HS BARRETT Ondansetron HCl 4 mg 10/30/24 02:42 Ondansetron Inj 2 Mg/Ml Inj 2 Ml IV 11/29/24 02:41 Q6H PRN NAUSEA OR VOMITING Protocol Sennosides 1 tab 10/30/24 09:00 10/30/24 08:55 Senna Tablet PO 11/29/24 08:59 1 tab QDAY BARRETT Administration Protocol Plan The patient is a 34-year-old female with no significant past medical history who presented to the ED on 10/29/2024 with complaints of chest pain about 3 days duration. Chest x-ray revealed pneumonia in the middle lobe of the right lung. #Sepsis 2/2 to CAP, resolving #Community-acquired pneumonia #Pleurisy, imroving The patient presented with a 3-day history of chest pain, located on the left side associated with productive cough with greenish-yellow sputum. Pain is that radiates to the back and exacerbated by coughing and deep inspiration. Additionally, she endorses subjective fevers and chills, but denies any difficulty breathing or shortness of breath. In the ED, patient met 4/4 SIRS criteria with fever, tachycardia, tachypnea and WBC of 34.1 Chest x-ray showed prominent right middle lobe pneumonia and CT was negative for PE. In the ED, patient received 1 L of NS and is on maintenance fluids, also received Tylenol IV ceftriaxone. Patient has received additional 1L of maintenance fluids. Plan: -IV ceftriaxone 10/29-current -Azithromycin 500 mg 10/29-current -Blood and sputum cultures sent 10/29/24, pending -Cocci serology pending -Continue to monitor CBC #CHF suspected #Suspected pulmonary hypertension #History of meth use Patient reports shortness of breath, chest pain. Utox is positive for methamphetamine. Chest CTA was negative for PE, positive for pulmonary hypertension. Plan: - Echo ordered #Normocytic normochromic anemia #Chronic iron deficiency anemia Admitting labs showed a hemoglobin of 9 with MCV of 59 and low MCH. Iron panel showed low iron, high TIBC, normal ferriting. Plan: - patient would require outpatient follow-up for possible source of bleeding - Iron supplements on discharge #Mild hyponatremia #Hypophosphatemia Admitting labs showed sodium level of 134 with osmolality of 271. Phosphorus-2.0 Plan: - monitor daily CMP Health maintenance: Dispo: MedSurg Diet: Regular DVT: SC Heparin Garcia: None Lines: Peripheral Code: Full code Plan of care discussed with attending Dr. Ricks and PGY-[address] Tejeda. Joanna Heart MD, PGY 1. Attending Provider Attestation/Addendum I have discussed and was present for the essential components of the history, physical examination, diagnosis, and treatment plan with the resident. I agree with the patient's care as documented by the resident and amended herein by me. Juan Carlos Ricks DO. Although this document has been carefully reviewed, there may still be some phonetic and other typographical errors. These errors are purely grammatical due to imperfections in the software program and should not be construed in any way to compromise the substance of the patient's medical care during this visit.
[2024-10-30 14:42] LABS: Cocci Serology, IgM Positive (Negative)
[2024-10-30 14:43] LABS: Cocid Sro, CF/ID (UCD) NO CHG* See Sep Rpt
--- NOTE | 2024-10-30 19:04 | PC.CC ---
Pt Nat Arredondo is a 34 yr old female, admitted to hospitalist services for sepsis, CAP, Pleurisy. UPPER CUTTER MACHINE CC met with pt at bedside to complete initial assessment. At time of encounter pt is noted to be alert and oriented to person, place and situation. Pt expressed understanding admission orders. Pt able to confirm all demographic information. Pt is from home [id number] Pt reports living in her home alone. Pt identifies her mother Sade Puckett [phone]. Pt reports being independent with ambulation and with completion of her ADLs. Pt reports she is not diabetic and is not on dialysis. Pt does not require supplemental O2. Pt is followed by [facility] for primary care. At time of D/c plan is for pt to return home. Per pt, family will provide transport.
[2024-10-30] MEDS: cefTRIAXone/D5w 1gm IV premix 50 ML IV (21:53)
[2024-10-31] VITALS (8 sets, daily range): BP systolic 130–140; BP diastolic 69–77; PULSE 74–97; RESP 15–99; TEMP 36.3–36.7; O2SAT 97–99
[2024-10-31 06:01] LABS: Basophils # (Auto) 0.1 Thou/mm3 (0.0-0.2); Basophils % (Auto) 0 % (0-2.5); Eosinophils # (Auto) 0.2 Thou/mm3 (0.0-0.5); Eosinophils % (Auto) 1 % (0-10); Hematocrit 25.6 % (36.0-46.0); Immature Granulocytes % (Auto) 1 % (0-0); Immature Granulocytes Auto 0.07 Thou/mm3 (0.00-0.00); Lymphocytes # (Auto) 2.1 Thou/mm3 (1.0-4.8); Lymphocytes % (Auto) 14 % (10-50); Mean Corpuscular HGB Conc 28.5 g/dl (31.0-37.0); Mean Corpuscular Hemoglobin 16.8 pg (25.0-35.0); Mean Corpuscular Volume 59 fL (80-100); Monocytes # (Auto) 0.5 Thou/mm3 (0.0-0.8); Monocytes % (Auto) 4 % (0-12); Neutrophils # (Auto) 12.3 Thou/mm3 (1.8-7.7); Neutrophils % (Auto) 81 % (37-80); Nucleated Red Blood Cell % 0 /100 WBC (0); Platelet Count 467 Thou/mm3 (140-440); RDW Standard Deviation 38.9 fL (36.4-46.3); Red Blood Count 4.35 Miln/mm3 (4.00-5.20); White Blood Count 15.2 Thou/mm3 (3.6-11.0)
[2024-10-31 06:10] LABS: Hemoglobin 7.3 g/dL (12.0-16.0)
[2024-10-31 06:51] LABS: Alanine Aminotransferase 7 U/L (10-49); Albumin, Serum 3.6 gm/dL (3.5-5.0); Albumin/Globulin Ratio 1.2 (1.2-2.2); Alkaline Phosphatase 78 U/L (46-116); Anion Gap 8 (7-16); Aspartate Amino Transferase < 8 U/L (0-34); BUN/Creatinine Ratio 20 Ratio (12-20); Bilirubin,Total 0.2 mg/dL (0.3-1.2); Blood Urea Nitrogen 10 mg/dL (9-23); Calcium (Corrected) 9.3 mg/dL (8.5-10.1); Carbon Dioxide 25.9 mMol/L (20.0-31.0); Chloride 103 mMol/L (98-107); Creatinine (Component) 0.5 mg/dL (0.6-1.3); Estimated Creatinine Clearance 167.5 mL/min (>60); Globulin 2.9 gm/dL (2.3-3.5); Glucose 103 mg/dL (74-106); Magnesium 1.6 mg/dL (1.6-2.6); Osmolality,Calculated 272 (275-295); Phosphorous 2.8 mg/dL (2.4-5.1); Potassium 3.5 mMol/L (3.4-5.1); Sodium 137 mMol/L (136-145); Total Protein 6.5 gm/dL (5.7-8.2); eGFR > 60 See Note
--- NOTE | 2024-10-31 08:34 | EKG_ITS ---
[facility] Test Date: 2024-10-31 Pat Name: KE DIALLO [facility] Gender: Female [address] Administrator: HARDEEP : 1990 Requested By: Joanna Heart Order Number: [id number] Reading MD: Joanna Heart Measurements Intervals [place] Rate: 81 P: 11 GA: 126 QRS: 3 QRSD: 102 T: 7 QT: 409 QTc: 478 Interpretive Statements SINUS RHYTHM No previous ECG available for comparison /store/S0/[id number]
--- NOTE | 2024-10-31 08:46 | ESPR_ITS ---
<Statement entered by Nedra Tejeda MD - 10/31/24 14:57> Patient was examined bedside this morning she is complaining of mild shortness of breath, cocci came back positive started her on fluconazole. Pending blood cultures and echo. I discussed with and supervised my co-resident involved in the care of this patient. I agree with the assessment and plan as documented above. Nedra Tejeda,PGY-3 Disclaimer: Despite multiple revisions, due to the dictation software being used, the document below may not be free of grammatical errors including phonetic/typographic errors. However, this does not deter from our commitment to providing health care in the patient's best interest in mind. Documentation for date of: 10/31/24 Subjective Subjective Interval history: Patient was seen and examined by the bedside. No acute overnight events. Patient reports weakness and shortness of breath improved. Saturates well on room air. Reports last methamphetamine use was week ago. Denies blood in the stool, reports her menstruations last 3 to 4 days, sometimes she uses 3-4 pads a day, reports profuse bleeding. Denies bleeding in between periods. Denies recent surgeries, childbirth. Reports eating meat every day. Had a discussion regarding the methamphetamine use, patient was recommended to stay away from using methamphetamine and was explained negative side effects of methamphetamine use. Cocci IgM was positive, we will start her on fluconazole. EKG showed sinus rhythm. Exam Vital Signs Temp Pulse Resp BP Pulse Ox O2 Del Method 97.3 F 80 18 132/71 H 99 Room Air 10/31/24 08:00 10/31/24 08:00 10/31/24 08:00 10/31/24 08:00 10/31/24 08:00 10/31/24 08:00 Narrative Exam Physical Exam General: Awake and in no acute distress. Conversational and non-toxic appearing. HEENT: Normocephalic, atraumatic, mucous membranes moist. Heart: Regular rate and rhythm, no murmurs. Lungs: Bilateral rhonchi. Abdomen: Soft, nondistended, nontender, positive bowel sounds. ?No guarding or rebound tenderness. Neurologic: Alert and oriented x3, no gross neurological deficit, and patient able to move all 4 extremities. Extremities: No edema. Skin: No rash or ecchymoses. Objective Labs 11/01/24 05:00 11/01/24 04:55 Labs: Laboratory Results - last 24 hr 10/30/24 10/31/24 04:49 05:12 WBC 15.2 H D RBC 4.35 Hgb 7.3 L Hct 25.6 L MCV 59 L MCH 16.8 L MCHC 28.5 L RDW Std Deviation 38.9 Plt Count 467 H Neut % (Auto) 81 H Lymph % (Auto) 14 Boyd % (Auto) 4 Eos % (Auto) 1 Baso % (Auto) 0 Neut # (Auto) 12.3 H Lymph # (Auto) 2.1 Boyd # (Auto) 0.5 Eos # (Auto) 0.2 Baso # (Auto) 0.1 Immature Gran # (Auto) 0.07 H Absolute Nucleated RBC 0.00 Immature Gran % 1 H Nucleated RBC % 0 Sodium 137 Potassium 3.5 Chloride 103 Carbon Dioxide 25.9 Anion Gap 8 BUN 10 Creatinine 0.5 L Estim Creat Clear Calc 167.5 eGFR > 60 BUN/Creatinine Ratio 20 Glucose 103 Calculated Osmolality 272 L Calcium 9.0 Corrected Calcium 9.3 Phosphorus 1.4 L 2.8 Magnesium 1.6 Total Bilirubin 0.2 L AST < 8 ALT 7 L Alkaline Phosphatase 78 Total Protein 6.5 Albumin 3.6 Globulin 2.9 Albumin/Globulin Ratio 1.2 Coccidioides IgM Ab Positive A Quality Measures Quality Measures VTE prophylaxis Assessment & Plan Assessment Current Active Medications: Generic Name Dose Route Start Last Admin Trade Name Freq PRN Reason Stop Dose Admin Acetaminophen 650 mg 10/30/24 02:42 10/30/24 08:55 Acetaminophen 325 Mg Tablet PO 11/29/24 02:41 650 mg Q6H PRN Administration Pain 1-3 or Fever >100.3 Azithromycin 500 mg 10/30/24 09:00 10/30/24 08:55 Azithromycin 250 Mg Tablet PO 11/03/24 08:59 500 mg QDAY BARRETT Administration Fluconazole 400 mg 10/31/24 09:00 Fluconazole 100 Mg Tablet PO 11/07/24 08:59 QDAY BARRETT Heparin Sodium (Porcine) 5,000 unit 10/30/24 09:00 10/30/24 21:53 Heparin Sod Inj 5000 Unit/Ml Vial SC 11/13/24 08:59 5,000 unit Q12HR BARRETT Administration Ceftriaxone Sodium/Dextrose 50 mls @ 100 mls/hr 10/30/24 21:00 10/30/24 21:53 Rocephin/D5w 1gm Iv Premix IV 11/06/24 20:59 100 mls/hr HS BARRETT Administration Ondansetron HCl 4 mg 10/30/24 02:42 Ondansetron Inj 2 Mg/Ml Inj 2 Ml IV 11/29/24 02:41 Q6H PRN NAUSEA OR VOMITING Protocol Sennosides 1 tab 10/30/24 09:00 10/30/24 08:55 Senna Tablet PO 11/29/24 08:59 1 tab QDAY BARRETT Administration Protocol Plan The patient is a 34-year-old female with no significant past medical history who presented to the ED on 10/29/2024 with complaints of chest pain about 3 days duration. Chest x-ray revealed pneumonia in the middle lobe of the right lung. #Sepsis 2/2 to CAP, resolving #Community-acquired pneumonia #Pleurisy, imroving The patient presented with a 3-day history of chest pain, located on the left side associated with productive cough with greenish-yellow sputum. Pain is that radiates to the back and exacerbated by coughing and deep inspiration. Additionally, she endorses subjective fevers and chills, but denies any difficulty breathing or shortness of breath. In the ED, patient met 4/4 SIRS criteria with fever, tachycardia, tachypnea and WBC of 34.1 Chest x-ray showed prominent right middle lobe pneumonia and CT was negative for PE. In the ED, patient received 1 L of NS and is on maintenance fluids, also received Tylenol IV ceftriaxone. Patient has received additional 1L of maintenance fluids. Cocci serology positive. Blood cultures pending. Plan: -IV ceftriaxone 10/29-current -Azithromycin 500 mg 10/29-current -Blood and sputum cultures sent 10/29/24, pending -Fluconazole 400 mg daily -Continue to monitor CBC #CHF suspected #Suspected pulmonary hypertension #History of meth use Patient reports shortness of breath, chest pain. Utox is positive for methamphetamine. Chest CTA was negative for PE, positive for pulmonary hypertension. Echo showed estimated EF 55-60%. RV is mildly dilated in size with normal systolic function. Plan: - Suggested avoid methamphetamine #Normocytic normochromic anemia #Chronic iron deficiency anemia Admitting labs showed a hemoglobin of 9 with MCV of 59 and low MCH. Iron panel showed low iron, high TIBC, normal ferriting. Plan: - patient would require outpatient follow-up for possible source of bleeding - Iron supplements on discharge #Mild hyponatremia #Hypophosphatemia Admitting labs showed sodium level of 134 with osmolality of 271. Phosphorus-2.0 Plan: - monitor daily CMP Health maintenance: Dispo: MedSurg Diet: Regular DVT: SC Heparin Garcia: None Lines: Peripheral Code: Full code Plan of care discussed with attending Dr. Prado and PGY-[address] Tejeda. Attending Provider Attestation/Addendum Carmen, Karly Prado, DO, attest that I was physically present for the marx portions of the service and evaluated the patient with the resident and I reviewed and discussed the case with the resident and agree with the resident's findings and plans of care as documented above Patient seen and evaluated this AM. She states she is feeling improved, but has shortness of breath with exertion. She has otherwise not needed any supplemental O2. Patient states she does not work, but has been helping a friend move and that is where she may have contracted [place]. Patient is an active meth user. Pending echocardiogram to determine any structural abnormalities. Patient has been afebrile otherwise. Will f/u with final blood cultures and sensitivities.
--- NOTE | 2024-10-31 08:47 | PC.SS ---
SS follow up note; Blood and sputum cultures pending as well as Cocci serology. CBC being monitored.
[2024-10-31] MEDS: FLUCONAZOLE 100 MG TABLET 400 MG PO (09:53)
[2024-10-31] MEDS: HEPARIN SOD INJ 5000 UNIT/ML VIAL SC ×2 (09:53→20:53)
[2024-10-31] MEDS: AZITHROMYCIN 250 MG TABLET 500 MG PO (09:53)
[2024-10-31] MEDS: SENNA TABLET 1 TAB PO (09:53)
[2024-10-31 10:55] LABS: Hepatitis A Antibody IgM Non Reactive (Non React); Hepatitis B Core Antibody IgM Non Reactive (Non React); Hepatitis B Surface Antigen Non Reactive (Non React); Hepatitis C Antibody Non Reactive (Non React)
[2024-10-31] MEDS: cefTRIAXone/D5w 1gm IV premix 50 ML IV (20:53)
[2024-11-01] VITALS: BP 147/81; PULSE 78; RESP 18; TEMP 36.7; O2SAT 99
[2024-11-01 04:00] VITALS: BP 138/78; PULSE 71; RESP 17; TEMP 36.2; O2SAT 96
[2024-11-01 06:03] LABS: Basophils # (Auto) 0.1 Thou/mm3 (0.0-0.2); Basophils % (Auto) 1 % (0-2.5); Eosinophils # (Auto) 0.3 Thou/mm3 (0.0-0.5); Eosinophils % (Auto) 4 % (0-10); Hematocrit 26.7 % (36.0-46.0); Immature Granulocytes % (Auto) 1 % (0-0); Immature Granulocytes Auto 0.06 Thou/mm3 (0.00-0.00); Lymphocytes # (Auto) 1.9 Thou/mm3 (1.0-4.8); Lymphocytes % (Auto) 27 % (10-50); Mean Corpuscular HGB Conc 27.7 g/dl (31.0-37.0); Mean Corpuscular Hemoglobin 16.8 pg (25.0-35.0); Mean Corpuscular Volume 61 fL (80-100); Monocytes # (Auto) 0.4 Thou/mm3 (0.0-0.8); Monocytes % (Auto) 6 % (0-12); Neutrophils # (Auto) 4.4 Thou/mm3 (1.8-7.7); Neutrophils % (Auto) 62 % (37-80); Nucleated Red Blood Cell % 0 /100 WBC (0); Platelet Count 433 Thou/mm3 (140-440); RDW Standard Deviation 41.5 fL (36.4-46.3)
[2024-11-01 06:11] LABS: Hemoglobin 7.4 g/dL (12.0-16.0)
[2024-11-01 06:54] LABS: Alanine Aminotransferase < 7 U/L (10-49); Albumin, Serum 3.6 gm/dL (3.5-5.0); Albumin/Globulin Ratio 1.2 (1.2-2.2); Alkaline Phosphatase 75 U/L (46-116); Anion Gap 9 (7-16); Aspartate Amino Transferase 10 U/L (0-34); BUN/Creatinine Ratio 12 Ratio (12-20); Bilirubin,Total < 0.2 mg/dL (0.3-1.2); Blood Urea Nitrogen 6 mg/dL (9-23); Calcium 8.7 mg/dL (8.3-10.6); Carbon Dioxide 23.8 mMol/L (20.0-31.0); Chloride 106 mMol/L (98-107); Creatinine (Component) 0.5 mg/dL (0.6-1.3); Estimated Creatinine Clearance 167.5 mL/min (>60); Globulin 2.9 gm/dL (2.3-3.5); Glucose 89 mg/dL (74-106); Magnesium 1.7 mg/dL (1.6-2.6); Osmolality,Calculated 274 (275-295); Phosphorous 3.8 mg/dL (2.4-5.1); Potassium 3.7 mMol/L (3.4-5.1); Sodium 139 mMol/L (136-145); Total Protein 6.5 gm/dL (5.7-8.2); eGFR > 60 See Note
[2024-11-01 07:39] VITALS: BP 149/82; PULSE 80; RESP 18; TEMP 36.4; O2SAT 95
[2024-11-01] MEDS: FLUCONAZOLE 100 MG TABLET 400 MG PO (08:40)
[2024-11-01] MEDS: HEPARIN SOD INJ 5000 UNIT/ML VIAL SC (08:41)
[2024-11-01] MEDS: SENNA TABLET 1 TAB PO (08:41)
[2024-11-01] MEDS: AZITHROMYCIN 250 MG TABLET 500 MG PO (08:41)
[2024-11-01 09:00] VITALS: PULSE 84; RESP 16; RESP 98
--- NOTE | 2024-11-01 10:31 | PC.NURSE ---
Walked patient in the hallway, O2 saturation drop to 87% during ambulation, patient feels tired and short of breath, respiratory rate 26 per minutes. Resting O2 saturation 94% on room air.
--- NOTE | 2024-11-01 11:39 | PC.SS ---
Handle Sander Operator (SUNNY) Zara met with patient to discuss discharge plan. Patient will discharge to [address] [place] [address]. SUNNY explained that oxygen would be ordered. SUNNY ordered O2 and Lizette will be the provider.
[2024-11-01 12:00] VITALS: BP 130/83; PULSE 82; RESP 17; TEMP 36.2; O2SAT 99
--- NOTE | 2024-11-01 12:22 | PC.NURSE ---
Discharge orders, patient needs oxygen for home, licensed social worker aware.
--- NOTE | 2024-11-02 07:19 | ESDS_ITS ---
<Statement entered by Karly Prado DO - 11/02/24 16:36> I, Karly Prado DO, attest that I was physically present for the marx portions of the service and evaluated the patient with the resident and I reviewed and discussed the case with the resident and agree with the resident's findings and plans of care as documented above <Statement entered by Nedra Tejeda MD - 11/02/24 15:14> I discussed with and supervised my co-resident involved in the care of this patient. I agree with the assessment and plan as documented above. Nedra Tejeda,PGY-3 Disclaimer: Despite multiple revisions, due to the dictation software being used, the document below may not be free of grammatical errors including phonetic/typographic errors. However, this does not deter from our commitment to providing health care in the patient's best interest in mind. Planned Discharge Date 11/01/24 DS: Providers Provider Date of admission: 10/30/24 02:34 Primary care physician: Yossi Perez MD Admitting Provider: Andie Buckley MD Attending Provider on Admission: Karly Prado DO Attending Provider on DC: Joanna Heart MD Discharging Provider: Joanna Heart MD DS: Diagnosis Problem List Completed Was Problem List Reviewed/Reconciled?: Yes Hospital Course Hospital Course Hospital course: The patient is a 34-year-old female with no significant past medical history who presented to the ED on 10/29/2024 with complaints of chest pain, cough with sputum and generalized weakness about 3 days duration. Labs showed lukocytosis, anemia, most likely due to iron deficiency. Chest x-ray revealed pneumonia in the middle lobe of the right lung CTA showed pneumonia, widened pulmonary artery. She was admitted for community-acquired pneumonia treatment. Echo showed ejection fraction 55-60%, mild dilatation of right ventricle. EKG showed sinus rhythm. Cocci IgM were positive, pending confirmatory testing from [facility]. She was started on ceftriaxone and azithromycin, after positive cocci IgM was started on fluconazole. Throughout the admission she was saturating well on room air, her shortness of breath, weakness and chest pain improved. When ambulating in the tirado she desaturated to the 88. She was seen and assessed by the bedside and was medically cleared and cleared for discharge home with home oxygen. Hospital diagnoses: #Sepsis 2/2 to CAP, resolving #Community-acquired pneumonia #Cocci pneumonia #Pleurisy, resolved #CHF suspected #Suspected pulmonary hypertension #History of meth use #Normocytic normochromic anemia #Chronic iron deficiency anemia #Mild hyponatremia, resolving #Hypophosphatemia, resolved Discharge recommendations: - Continue to take Diflucan for 6 weeks - Take quaifenesin 200 mg tablets 4 times a day as needed - Follow-up with your PCP in 1 week - Repeat CMP in 1 week - Use oxygen at home as needed Plan of care discussed with attending Dr. Prado and PGY-[address] Tejeda. Joanna Heart MD, PGY 1. Time Spent with Patient Time attestation: Total time spent providing and/or coordinating discharge services: >35min Exam Vital Signs Temp Pulse Resp BP Pulse Ox O2 Del Method 97.1 F 82 17 130/83 99 Room Air 11/01/24 12:00 11/01/24 12:00 11/01/24 12:00 11/01/24 12:00 11/01/24 12:00 11/01/24 12:00 Narrative Exam Physical Exam General: Awake and in no acute distress. Conversational and non-toxic appearing. HEENT: Normocephalic, atraumatic, mucous membranes moist. Heart: Regular rate and rhythm, no murmurs. Lungs: Bilateral rhonchi. Abdomen: Soft, nondistended, nontender, positive bowel sounds. ?No guarding or rebound tenderness. Neurologic: Alert and oriented x3, no gross neurological deficit, and patient able to move all 4 extremities. Extremities: No edema. Skin: No rash or ecchymoses. Discharge Plan Plan Patient Disposition: HOME (Self Care) Disposition Comment: with O2 Patient condition on transfer: Stable Care Plan Goals: Discharge recommendations: - Continue to take Diflucan for 6 weeks - Take quaifenesin 200 mg tablets 4 times a day as needed - Follow-up with your PCP in 1 week - Repeat CMP in 1 week - Use oxygen at home as needed Prescriptions/Referrals Prescriptions/Med Rec: New fluconazole 200 mg tablet 400 mg PO QDAY 30 Days Qty: 60 1RF ferrous sulfate 325 mg (65 mg iron) tablet 325 mg PO QDAY Qty: 30 2RF guaifenesin 200 mg tablet 200 mg PO QID PRN (Reason: cough) Qty: 20 0RF Referrals: Yossi Perez MD [Primary Care Provider] - Patient/Caregiver Discharge Instructions Education Materials: Understanding Oxygen Therapy, Using Oxygen Safely, Preventing Pneumonia, Treating Pneumonia, If Oxygen Is Prescribed, Understanding Coccidioidomycosis Print Language: French Stand Alone Forms: Tiffany Award Info., Patient Portal Info Letter Discharge Order Discharge Orders: Discharge (Routine); Ordered 11/01/24 Ordered By: Karly Prado Quality Discharge Quality Measures VTE prophylaxis
== END 2024-11-01 15:26 | disposition home or self-care (01) | DRG 720 ==
LOC: SERX 22:46 → SERHOLD 10-30 02:54 → S3NX 10-30 14:53
PROVIDERS: Admitting Provider Student in an Organized Health Care Education/Training Program; Emergency Provider Emergency Medicine; PCP Family Medicine; Visit Provider Internal Medicine
DX: A41.9 Sepsis, unspecified organism (principal); B38.0 Acute pulmonary coccidioidomycosis; F17.210 Nicotine dependence, cigarettes, uncomplicated; R09.1 Pleurisy; E87.1 Hypo-osmolality and hyponatremia; E83.39 Other disorders of phosphorus metabolism; D50.9 Iron deficiency anemia, unspecified; I51.7 Cardiomegaly; F15.90 Other stimulant use, unspecified, uncomplicated; I27.20 Pulmonary hypertension, unspecified
CPT/HCPCS: 36415; 71046; 71275; 80053; 80061; 80074; 80307; 81001; 82728; 83036; 83540; 83550; 83605; 83690; 83735; 83880; 84100; 84145; 84443; 84484; 84703; 85025; 85610; 85730; 86635; 87040; 87081; 87086; 87205; 87502; 87811; 93005; 93306; 96361; 96365; 96372; 99285; A4649; J0696; J1643; J7030; Q9967; A9270; J1644